=== PATIENT | female | born 1965 | race Hispanic/Latino ===

== ENCOUNTER 2017-03-03 18:09 | Emergency (ER) | payer BC ==
[~2017-03-03] VITALS: Ht 167.6 cm; Wt 80.2 kg
[2017-03-03 20:44] VITALS: BP 135/85
== END 2017-03-03 20:44 | disposition home or self-care (01) | DRG 392 ==
LOC: ED 18:09
DX: R10.84 Generalized abdominal pain (principal); K59.00 Constipation, unspecified